=== PATIENT | female | born 1970 | race Caucasian/White ===

== ENCOUNTER 2017-03-22 17:02 | Emergency (ER) | payer MEDICAID ==
[~2017-03-22] VITALS: Ht 157.5 cm; Wt 70.0 kg
[2017-03-22 17:10] VITALS: BP 148/76
[2017-03-22] MEDS ORDERED: KETOROLAC 60MG/2ML VIAL IM ONE (18:15)
[2017-03-22] MEDS ORDERED: BACITRACIN ZINC OINT UDPKT TOP ONE (18:15)
== END 2017-03-22 19:25 | disposition home or self-care (01) ==
LOC: ER 17:44
DX: S91.209A Unspecified open wound of unspecified toe(s) with damage to nail, initial encounter (principal); X58.XXXA Exposure to other specified factors, initial encounter; Y93.89 Activity, other specified; Y92.89 Other specified places as the place of occurrence of the external cause; Y99.8 Other external cause status
CPT/HCPCS: 96372; 99283; J1885; Z7610

== ENCOUNTER 2019-12-03 21:21 | Emergency (ER) | payer MEDICAID ==
[~2019-12-03] VITALS: Ht 154.9 cm; Wt 64.0 kg
[2019-12-03] MEDS ORDERED: TETRACAINE 0.5% OPHTH DROPS 4ML RIGHTEYE ONE (23:45)
[2019-12-03] MEDS ORDERED: FLUORESCEIN SODIUM 1MG/STRIP RIGHTEYE ONE (23:45)
[2019-12-04 00:27] VITALS: BP 125/74
== END 2019-12-04 00:28 | disposition home or self-care (01) ==
LOC: ER 21:21
DX: H11.31 Conjunctival hemorrhage, right eye (principal); R03.0 Elevated blood-pressure reading, without diagnosis of hypertension
CPT/HCPCS: 99283